=== PATIENT | male | born 1950 | race Caucasian/White ===

== ENCOUNTER 2019-04-02 07:36 | Day surgery (SDC) | payer MEDICARE, MEDICAID ==
[~2019-04-02] VITALS: Ht 175.3 cm; Wt 58.5 kg
[2019-04-02] VITALS (9 sets, daily range): BP systolic 133–191; BP diastolic 79–119
[~2019-04-02 07:36] MED LIST: BACL10TA PO; CYCL10TA10 PO; FLUO20CA39 PO; HYDR-4353 PO; LEVO100T PO; PER10325T PO; SULF-14 PO
--- NOTE | 2019-04-02 07:45 | NUR ---
[facility] Pt oriented to room, including TV & call light use. Vital signs obtained. Pt breathes through stoma in neck and does not have cannula or vocal cord stimulator present.
[2019-04-02 08:35] LABS: BASOPHILS # (AUTO) 0.1 X10'3 (0-0.2); EOSINOPHILS # (AUTO) 0.2 X10'3 (0-0.9); HEMOGLOBIN 10.7 g/dl (14.0-17.9); MEAN CORPUSCULAR HGB CONC 33.5 g/dL (33.0-36.5); MONOCYTES # (AUTO) 1.4 X10'3 (0-0.9)
[2019-04-02] MEDS ORDERED: ceFAZolin 2gm in dextrose, iso 50 ML IV ONE (08:35)
[2019-04-02] MEDS ORDERED: normal saline 1000ml 1,000 ML IV PRN (08:35)
[2019-04-02 08:37] LABS: BASOPHILS % (AUTO) 1.2 % (0-1); LYMPHOCYTES # (AUTO) 1.1 X10'3 (1.1-4.8); LYMPHOCYTES % (AUTO) 10.6 % (21-51); MEAN CORPUSCULAR HEMOGLOBIN 31.6 PG (27.0-31.0); MEAN CORPUSCULAR VOLUME 94.6 FL (78-98); MEAN PLATELET VOLUME 7.1 FL (7.4-10.4); MONOCYTES % (AUTO) 13.9 % (2-12); NEUTROPHILS # (AUTO) 7.2 X10'3 (1.8-7.7); NEUTROPHILS % (AUTO) 72.3 % (42-75); PLATELET COUNT 331 X10'3 (140-440); RED BLOOD COUNT 3.38 X10'6 (4.70-6.10); RED CELL DISTRIBUTION WIDTH 14.6 % (11.5-14.5)
[2019-04-02 08:55] LABS: ALBUMIN 3.5 G/DL (3.4-5.0); ANION GAP 7 (8-16); BLOOD UREA NITROGEN 16 MG/DL (7-18); BUN/CREATININE RATIO 19.8 (5.4-32.0); CALCIUM 8.8 MG/DL (8.5-10.1); CHLORIDE 106 MMOL/L (99-107); CREATININE 0.81 MG/DL (0.60-1.10); GLUCOSE 112 MG/DL (70-104); POTASSIUM 4.3 MMOL/L (3.5-5.1); SODIUM 139 MMOL/L (135-145); TOTAL CARBON DIOXIDE 26.4 MMOL/L (24-32); eGFR > 90 ML/MIN
[2019-04-02] MEDS ORDERED: FLUO40CA10 PO (08:59)
[2019-04-02] MEDS ORDERED: LIDOcaine 1%/PF 5ML 10 MG/ML VIAL SQ ONE (09:00)
[2019-04-02] MEDS ORDERED: midazolam 2 mg/2 ml injection IV PRN (09:00)
[2019-04-02] MEDS ORDERED: fentaNYL/PF 50MCG/1 ML 2ML syringe IV PRN (09:00)
[2019-04-02] MEDS ORDERED: LIDOcaine 1%/PF 5ML 10 MG/ML VIAL ONE (09:14)
[2019-04-02] MEDS ORDERED: diphenhydrAMINE 50 mg/ml inj ONE (09:14)
[2019-04-02] MEDS ORDERED: midazolam 2 mg/2 ml injection ONE ×3 (09:14→10:01)
[2019-04-02] MEDS ORDERED: iohexol 300 MG/1 ML 50ml polymer ONE (09:15)
[2019-04-02] MEDS ORDERED: fentaNYL/PF 50MCG/1 ML 2ML syringe ONE ×3 (09:15→10:02)
--- NOTE | 2019-04-02 09:15 | NUR ---
Pt transported out of room to angio suite via gurney. Pt awake, alert & in no acute distress.
--- NOTE | 2019-04-02 10:40 | NUR ---
Pt returned to room via gurney from angio suite. Pt drowsy but easily arousable. Vital signs obtained, pt denies pain. [place] juice requested and given, 100 mL consumed. Will continue to closely monitor.
[2019-04-02] MEDS ORDERED: normal saline 1000ml 1,000 ML IV SCH (11:08)
[2019-04-02] MEDS ORDERED: HYDROcodone/acetaminophen 5mg/325mg tablet PO PRN (11:10)
[2019-04-02] MEDS ORDERED: morphine 4 MG/ML inj SYRINge IV PRN (11:10)
--- NOTE | 2019-04-02 11:32 | NUR ---
Called and spoke to Maureen pt's caregiver, re time of discharge. Caregiver stated she would arrive at 1330.
--- NOTE | 2019-04-02 14:00 | NUR ---
Pt offered lunch tray, consumed 75% of meal. Pt ambulated independently with wide gait 100ft, tolerated well. IV removed, cannula intact. Discharge instructions, including medication information, S&S worsening condition & f/u appts reviewed with pt and pt's significant other. Pt educated that he must see his PCP for his narcotic prescriptions. All pt belongings, including watch and glasses, gathered up and sent with pt. Pt transported to [facility] in wheelchair. Pt ambulated independently and without difficulty to private vehicle.
== END 2019-04-02 14:00 | disposition home or self-care (01) ==
LOC: SSTAY O 07:36
PROVIDERS: ATTEND Radiology Vascular & Interventional Radiology
PROC: 0QS03ZZ Reposition Lumbar Vertebra, Percutaneous Approach (ICD-10-PCS; principal; 2019-04-02)
PROC: 0QU03JZ Supplement Lumbar Vertebra with Synthetic Substitute, Percutaneous Approach (ICD-10-PCS; 2019-04-02)
PROC: 0Q903ZX Drainage of Lumbar Vertebra, Percutaneous Approach, Diagnostic (ICD-10-PCS; 2019-04-02)
DX: M80.08XA Age-related osteoporosis with current pathological fracture, vertebra(e), initial encounter for fracture (principal); M54.5 Low back pain; W19.XXXA Unspecified fall, initial encounter; Y93.89 Activity, other specified; Y92.89 Other specified places as the place of occurrence of the external cause; Z85.89 Personal history of malignant neoplasm of other organs and systems; Z98.890 Other specified postprocedural states; Z72.89 Other problems related to lifestyle; F17.290 Nicotine dependence, other tobacco product, uncomplicated; Z88.8 Allergy status to other drugs, medicaments and biological substances; Z79.899 Other long term (current) drug therapy; E03.9 Hypothyroidism, unspecified; I10 Essential (primary) hypertension
CPT/HCPCS: 22514; 22515; 80048; 85025; 99152; 99153; J1200; J2250; J3010; Q9967; 88173; 88305; C1713

== ENCOUNTER → 2020-06-26 | Emergency (ER) | payer MEDICARE, MEDICAID ==
[~2020-06-26] VITALS: Ht 175.3 cm; Wt 68.2 kg
[~2020-06-26] MED LIST changes: -BACL10TA PO; +CALC950T2 PO; +CHOL500044 PO; -FLUO20CA39 PO; +FLUO40CA10 PO; +FLUT9.9S NS; -HYDR-4353 PO; +HYDROcodone/acetaminophen 10/325mg tab PO ONE; -LEVO100T PO; +LEVO88TA7 PO; +LIDOcaine 5% patch TP ONE; +OXYC10TA47 PO; -PER10325T PO; -SULF-14 PO; +normal saline 1000ML IV soln IVB ONE; +tamsulosin capsule PO
[2020-06-26 11:54] LABS: ALANINE AMINOTRANSFERASE 61 U/L (12-78); ALBUMIN 3.4 G/DL (3.4-5.0); ALBUMIN/GLOBULIN RATIO 0.8 (1.1-1.5); ALKALINE PHOSPHATASE 113 IU/L (46-116); ANION GAP 19 (8-16); ASPARTATE AMINO TRANSFERASE 153 U/L (10-37); BILIRUBIN,TOTAL 0.7 MG/DL (0.1-1.0); BLOOD UREA NITROGEN 9 MG/DL (7-18); BUN/CREATININE RATIO 6.4 (5.4-32.0); CALCIUM 8.5 MG/DL (8.5-10.1); CHLORIDE 100 MMOL/L (99-107); GLUCOSE 88 MG/DL (70-104); POTASSIUM 3.5 MMOL/L (3.5-5.1); SODIUM 140 MMOL/L (135-145); TOTAL PROTEIN 7.7 G/DL (6.4-8.2); eGFR 50 ML/MIN
[2020-06-26 11:56] LABS: BASOPHILS # (AUTO) 0.1 X10'3 (0-0.2); BASOPHILS % (AUTO) 1.9 % (0-1); EOSINOPHILS # (AUTO) 0.3 X10'3 (0-0.9); EOSINOPHILS % (AUTO) 5.1 % (0-6); HEMATOCRIT 36.8 % (42.0-52.0); HEMOGLOBIN 12.4 g/dl (14.0-17.9); LYMPHOCYTES # (AUTO) 0.9 X10'3 (1.1-4.8); MEAN CORPUSCULAR HEMOGLOBIN 35.1 PG (27.0-31.0); MEAN CORPUSCULAR HGB CONC 33.7 g/dL (33.0-36.5); MEAN CORPUSCULAR VOLUME 103.9 FL (78-98); MEAN PLATELET VOLUME 8.6 FL (7.4-10.4); MONOCYTES # (AUTO) 0.5 X10'3 (0-0.9); MONOCYTES % (AUTO) 8.2 % (2-12); NEUTROPHILS # (AUTO) 4.7 X10'3 (1.8-7.7); NEUTROPHILS % (AUTO) 71.8 % (42-75); PLATELET COUNT 209 X10'3 (140-440); RED BLOOD COUNT 3.54 X10'6 (4.70-6.10); RED CELL DISTRIBUTION WIDTH 17.1 % (11.5-14.5); WHITE BLOOD COUNT 6.6 X10'3 (4.5-11.0)
[2020-06-26 17:02] VITALS: BP 133/93
== END | disposition home or self-care (01) ==
LOC: ER 10:25
DX: C78.89 Secondary malignant neoplasm of other digestive organs (principal); F10.20 Alcohol dependence, uncomplicated; R55 Syncope and collapse; R42 Dizziness and giddiness; I10 Essential (primary) hypertension; E03.9 Hypothyroidism, unspecified; Z85.9 Personal history of malignant neoplasm, unspecified; Z98.890 Other specified postprocedural states; Z72.89 Other problems related to lifestyle; Z88.6 Allergy status to analgesic agent; Z88.8 Allergy status to other drugs, medicaments and biological substances; Z79.899 Other long term (current) drug therapy; Y90.9 Presence of alcohol in blood, level not specified
CPT/HCPCS: 36415; 70450; 72125; 80053; 84484; 85025; 93005; 99285; J7030

== ENCOUNTER 2021-03-20 14:20 | Inpatient (IN) | payer MEDICARE, MEDICAID ==
[~2021-03-20] VITALS: Ht 172.7 cm; Wt 43.3 kg
[~2021-03-20 14:20] MED LIST changes: +CALC1TAB99 PO; -CALC950T2 PO; +CYCL-524 PO; -CYCL10TA10 PO; +FURO20TA4 PO; -HYDROcodone/acetaminophen 10/325mg tab PO ONE; -LEVO88TA7 PO; -LIDOcaine 5% patch TP ONE; +SENN1TAB82 PO; -normal saline 1000ML IV soln IVB ONE; -tamsulosin capsule PO
[2021-03-20] MEDS ORDERED: normal saline 1000ml 1,000 ML IV ONE ×2 (17:05→17:30)
[2021-03-20] MEDS ORDERED: ondansetron/PF 4mg/2ml inj IV ONE (17:05)
[2021-03-20] MEDS ORDERED: morphine 4 MG/ML inj SYRINge IV ONE (17:05)
[2021-03-20 17:06] LABS: BASOPHILS # (AUTO) 0.1 X10'3 (0-0.2); EOSINOPHILS % (AUTO) 0.2 % (0-6); HEMATOCRIT 38.8 % (42.0-52.0); LYMPHOCYTES # (AUTO) 0.6 X10'3 (1.1-4.8); LYMPHOCYTES % (AUTO) 5.7 % (21-51); MEAN CORPUSCULAR HEMOGLOBIN 35.1 PG (27.0-31.0); MEAN CORPUSCULAR HGB CONC 33.5 g/dL (33.0-36.5); MEAN CORPUSCULAR VOLUME 104.8 FL (78-98); MEAN PLATELET VOLUME 7.1 FL (7.4-10.4); MONOCYTES # (AUTO) 0.8 X10'3 (0-0.9); MONOCYTES % (AUTO) 7.3 % (2-12); NEUTROPHILS # (AUTO) 9.3 X10'3 (1.8-7.7); NEUTROPHILS % (AUTO) 85.8 % (42-75); PLATELET COUNT 341 X10'3 (140-440); RED CELL DISTRIBUTION WIDTH 16.1 % (11.5-14.5); WHITE BLOOD COUNT 10.9 X10'3 (4.5-11.0)
[2021-03-20 17:21] LABS: ALANINE AMINOTRANSFERASE 14 U/L (12-78); ALBUMIN 3.3 G/DL (3.4-5.0); ALBUMIN/GLOBULIN RATIO 0.7 (1.1-1.5); ALKALINE PHOSPHATASE 98 IU/L (46-116); ANION GAP 19 (8-16); ASPARTATE AMINO TRANSFERASE 26 U/L (10-37); BILIRUBIN,TOTAL 0.5 MG/DL (0.1-1.0); BLOOD UREA NITROGEN 21 MG/DL (7-18); CALCIUM 9.5 MG/DL (8.5-10.1); CHLORIDE 98 MMOL/L (99-107); GLUCOSE 80 MG/DL (70-104); MAGNESIUM 1.4 MG/DL (1.5-2.4); SODIUM 138 MMOL/L (135-145); TOTAL CARBON DIOXIDE 21.1 MMOL/L (24-32); TOTAL PROTEIN 8.1 G/DL (6.4-8.2); eGFR 74 ML/MIN
[2021-03-20] MEDS ORDERED: ondansetron/PF 4mg/2ml inj IV PRN (17:55)
[2021-03-20] MEDS ORDERED: potassium Cl 20 mEq SR tablet PO PRN ×2 (17:55)
[2021-03-20] MEDS ORDERED: magnesium Cl slow-release 64mg tablet PO PRN (17:55)
--- NOTE | 2021-03-20 19:15 | NUR ---
Patient in room . I have received report from PUNCHER AND FASTENERJACOB BOYD and had the opportunity to ask questions and assume patient care. Addendum: 03/20/21 at 1915 by Samantha Ny RN Amended: Links added.
--- NOTE | 2021-03-20 19:25 | NUR ---
arrived to the room from er slid himself onto bed from [facility] very thin emaciated male non verbal due to trach. set up with sterile water and trach suction set up and marlonker. hospital socks put on noted dry scaly feet and fungal appearing toe nails.
[2021-03-20] MEDS ORDERED: LEVO88TA2 PO (19:30)
[2021-03-20] MEDS: normal saline 1000ml 1,000 ML IV SCH (19:50)
[2021-03-20 19:57] VITALS: BP 139/84
[2021-03-20] MEDS: K and/or MAG REPLACEMENT MC SCH (20:00)
[2021-03-21] VITALS (17 sets, daily range): BP systolic 112–136; BP diastolic 61–76
--- NOTE | 2021-03-21 01:30 | NUR ---
pt awoke c/o left ear neck pain and medicated with morphine for this. pt answered with sign language and paper tablet admission questions.
[2021-03-21] MEDS: morphine 2 MG/ML inj. syringe IV PRN ×3 (01:31→18:42)
[2021-03-21] MEDS: normal saline 1000ml 1,000 ML IV SCH ×3 (04:59→23:55)
[2021-03-21 06:24] LABS: ALBUMIN 2.7 G/DL (3.4-5.0); ANION GAP 11 (8-16); BLOOD UREA NITROGEN 17 MG/DL (7-18); BUN/CREATININE RATIO 22.4 (5.4-32.0); CALCIUM 8.4 MG/DL (8.5-10.1); CHLORIDE 104 MMOL/L (99-107); CREATININE 0.76 MG/DL (0.60-1.10); GLUCOSE 58 MG/DL (70-104); MAGNESIUM 1.3 MG/DL (1.5-2.4); POTASSIUM 3.9 MMOL/L (3.5-5.1); SODIUM 138 MMOL/L (135-145); TOTAL CARBON DIOXIDE 23.5 MMOL/L (24-32); eGFR > 90 ML/MIN
--- NOTE | 2021-03-21 06:30 | NUR ---
Patient in room JUNIOR 358. I have received report from DEB Singh and had the opportunity to ask questions and assume patient care.
[2021-03-21 06:35] LABS: BASOPHILS % (AUTO) 0.5 % (0-1); EOSINOPHILS # (AUTO) 0.1 X10'3 (0-0.9); HEMATOCRIT 36.2 % (42.0-52.0); LYMPHOCYTES # (AUTO) 0.7 X10'3 (1.1-4.8); LYMPHOCYTES % (AUTO) 9.2 % (21-51); MEAN CORPUSCULAR HEMOGLOBIN 35.2 PG (27.0-31.0); MEAN CORPUSCULAR HGB CONC 33.1 g/dL (33.0-36.5); MEAN CORPUSCULAR VOLUME 106.2 FL (78-98); MEAN PLATELET VOLUME 7.6 FL (7.4-10.4); MONOCYTES # (AUTO) 0.9 X10'3 (0-0.9); MONOCYTES % (AUTO) 11.4 % (2-12); NEUTROPHILS # (AUTO) 6.1 X10'3 (1.8-7.7); NEUTROPHILS % (AUTO) 77.9 % (42-75); PLATELET COUNT 296 X10'3 (140-440); RED BLOOD COUNT 3.41 X10'6 (4.70-6.10); WHITE BLOOD COUNT 7.8 X10'3 (4.5-11.0)
--- NOTE | 2021-03-21 06:45 | NUR ---
Problems reprioritized. Patient report given, questions answered & plan of care reviewed with DEB GARCIA. Addendum: 03/21/21 at 0645 by Samantha Ny RN Amended: Links added.
--- NOTE | 2021-03-21 06:45 | NUR ---
OR PT REQUEST BROTHER AMOS CALLED MESSAGE LEFT TO CALL THE HOSPITAL PER HIS BROTHERS REQUEST.
[2021-03-21] MEDS: K and/or MAG REPLACEMENT MC SCH ×2 (08:10→20:00)
[2021-03-21] MEDS: magnesium 4gm in 100ml NS 100 ML IV PRN (08:24)
[2021-03-21] MEDS: magnesium 2GM in 50ml NS 50 ML IV PRN (10:12)
--- NOTE | 2021-03-21 10:49 | NUR ---
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 Pt unsure of exact amount of wt loss though has note been able to eat or drink much at all d/t worsening dysphagia. Current scaled wt shows 43kg and last scaled wt June 2020 shows 68kg which represents a severe 37% body wt loss. Pt appears w/ full body muscle/fat wasting. No edema present. At this time pt meets criteria for malnutrition, MD notified. Pt is scheduled to receive PEG this admit per MD note, will place TF recs below. Pt currently NPO. Will continue to monitor. Recs: 1. IF pt receives PEG: Continuous TF using Jevity 1.2 at 50ml/hr goal providing 1200ml volume, 1440kcals, 67g protein, 968ml free water 2. IF TF, Additional water flush 100ml Q4H; monitor serum Na 3. IF TF, PALB Q / 4. Daily wts 5. Routine Bowel care once TF Addendum: 03/21/21 at [address] Amended: Links added.
[2021-03-21] MEDS ORDERED: MIDAZolam 1 MG/ML 5ML VIAL ONE (11:13)
[2021-03-21] MEDS ORDERED: fentaNYL/PF 50MCG/1 ML 2ML syringe ONE (11:13)
[2021-03-21] MEDS ORDERED: LIDOcaine Viscous 15ml cup ONE (11:13)
--- NOTE | 2021-03-21 18:35 | NUR ---
Patient in room JUNIOR 358. I have received report from DEB GARCIA and had the opportunity to ask questions and assume patient care. Addendum: 03/21/21 at 1919 by Samantha Ny RN Amended: Links added.
[2021-03-22 00:13] VITALS: BP 108/69
[2021-03-22] MEDS: morphine 2 MG/ML inj. syringe IV PRN ×5 (00:35→23:43)
[2021-03-22] MEDS: normal saline 1000ml 1,000 ML IV SCH ×2 (04:51→19:34)
--- NOTE | 2021-03-22 04:55 | NUR ---
PT AWOKE PAIN 7.5/10 MEDICATED WITH 1MG OF MORPHINE FOR THIS.
--- NOTE | 2021-03-22 05:18 | NUR ---
Student documentation: I have reviewed and agree with all interventions, assessments performed and documented by HOPE FRANKLIN RN STUDENT.Student Medication Administration: For this medication-pass time frame, all medication were reviewed, dispensed, administered and documented per hospital policy by HOPE HANDY RN STUDENT. Addendum: 03/22/21 at 0519 by Samantha Ny RN Amended: Links added.
--- NOTE | 2021-03-22 05:25 | NUR ---
Student documentation: I have reviewed and agree with all interventions, assessments performed and documented by HOPE FRANKLIN RN STUDENT. Addendum: 03/22/21 at 0526 by Samantha Ny RN Amended: Links added.
--- NOTE | 2021-03-22 05:26 | NUR ---
Student Medication Administration: For this medication-pass time frame, all medication were reviewed, dispensed, administered and documented per hospital policy by HOPE FRANKLIN RN STUDENT. Addendum: 03/22/21 at 0526 by Samantha Ny RN Amended: Links added.
[2021-03-22 06:13] LABS: BASOPHILS % (AUTO) 0.5 % (0-1); EOSINOPHILS % (AUTO) 0.3 % (0-6); HEMATOCRIT 37.4 % (42.0-52.0); HEMOGLOBIN 12.5 g/dl (14.0-17.9); LYMPHOCYTES # (AUTO) 0.4 X10'3 (1.1-4.8); LYMPHOCYTES % (AUTO) 5.4 % (21-51); MEAN CORPUSCULAR HEMOGLOBIN 35.2 PG (27.0-31.0); MEAN CORPUSCULAR HGB CONC 33.4 g/dL (33.0-36.5); MEAN CORPUSCULAR VOLUME 105.3 FL (78-98); MEAN PLATELET VOLUME 7.1 FL (7.4-10.4); MONOCYTES # (AUTO) 0.7 X10'3 (0-0.9); NEUTROPHILS # (AUTO) 6.5 X10'3 (1.8-7.7); NEUTROPHILS % (AUTO) 84.8 % (42-75); PLATELET COUNT 307 X10'3 (140-440); RED BLOOD COUNT 3.55 X10'6 (4.70-6.10); RED CELL DISTRIBUTION WIDTH 16.3 % (11.5-14.5); WHITE BLOOD COUNT 7.6 X10'3 (4.5-11.0)
[2021-03-22 06:23] LABS: ALBUMIN 2.5 G/DL (3.4-5.0); ANION GAP 11 (8-16); BLOOD UREA NITROGEN 11 MG/DL (7-18); BUN/CREATININE RATIO 16.2 (5.4-32.0); CALCIUM 8.1 MG/DL (8.5-10.1); CHLORIDE 104 MMOL/L (99-107); CREATININE 0.68 MG/DL (0.60-1.10); GLUCOSE 63 MG/DL (70-104); MAGNESIUM 1.6 MG/DL (1.5-2.4); SODIUM 138 MMOL/L (135-145); TOTAL CARBON DIOXIDE 22.7 MMOL/L (24-32); eGFR > 90 ML/MIN
--- NOTE | 2021-03-22 06:46 | NUR ---
Problems reprioritized. Patient report given, questions answered & plan of care reviewed with CHING BOYD. Addendum: 03/22/21 at 0647 by Samantha Ny RN Amended: Links added.
--- NOTE | 2021-03-22 06:59 | NUR ---
Patient in room J[facility] 358. I have received report from charlene obrien and had the opportunity to ask questions and assume patient care.
[2021-03-22 07:00] VITALS: BP 129/73
[2021-03-22] MEDS: K and/or MAG REPLACEMENT MC SCH ×2 (08:00→20:00)
[2021-03-22] MEDS: morphine 10mg/0.5ml (conc. morphine) oral syringe PO SCH ×2 (12:15→20:27)
[2021-03-22 12:30] VITALS: BP 116/74
--- NOTE | 2021-03-22 14:57 | NUR ---
per pharmacist, ok to crush Synthroid and Prozac
[2021-03-22] MEDS: levoTHYROXINE 88mcg tablet PO SCH (15:02)
[2021-03-22] MEDS: FLUoxetine 20mg capsule PO SCH (15:02)
--- NOTE | 2021-03-22 18:20 | NUR ---
Patient in room JUN[facility] 358. I have received report from CHING BOYD and had the opportunity to ask questions and assume patient care. Addendum: 03/22/21 at 1916 by Samantha Ny RN Amended: Links added.
--- NOTE | 2021-03-22 18:36 | NUR ---
Problems reprioritized. Patient report given, questions answered & plan of care reviewed with JOSE BOYD.
[2021-03-22 19:00] VITALS: BP 106/63
[2021-03-23] VITALS (18 sets, daily range): BP systolic 93–148; BP diastolic 57–89
--- NOTE | 2021-03-23 01:00 | NUR ---
pt sitting up watching tv given warm blankets per request and then new iv 20 inserted left upper arm. pt stated he wanted to keep the left ac iv for now but moved saline to new iv for pt.
--- NOTE | 2021-03-23 02:00 | NUR ---
pt awake and seyt up for trach suctioning and noted he tolerated it well and brought up a mucous plug x2 with slight pink tint to the secretions.
--- NOTE | 2021-03-23 03:39 | NUR ---
resting on his side without changes.
[2021-03-23] MEDS: normal saline 1000ml 1,000 ML IV SCH ×2 (03:55→17:37)
[2021-03-23] MEDS: morphine 2 MG/ML inj. syringe IV PRN ×2 (04:48→17:37)
--- NOTE | 2021-03-23 04:50 | NUR ---
medicated with morphine for pain.
[2021-03-23 06:11] LABS: BASOPHILS # (AUTO) 0.1 X10'3 (0-0.2); BASOPHILS % (AUTO) 1.3 % (0-1); EOSINOPHILS # (AUTO) 0.1 X10'3 (0-0.9); EOSINOPHILS % (AUTO) 1.2 % (0-6); HEMOGLOBIN 10.9 g/dl (14.0-17.9); LYMPHOCYTES # (AUTO) 0.4 X10'3 (1.1-4.8); LYMPHOCYTES % (AUTO) 5.3 % (21-51); MEAN CORPUSCULAR HEMOGLOBIN 34.6 PG (27.0-31.0); MEAN CORPUSCULAR HGB CONC 33.1 g/dL (33.0-36.5); MEAN CORPUSCULAR VOLUME 104.4 FL (78-98); MEAN PLATELET VOLUME 6.9 FL (7.4-10.4); MONOCYTES % (AUTO) 12.3 % (2-12); NEUTROPHILS # (AUTO) 6.5 X10'3 (1.8-7.7); NEUTROPHILS % (AUTO) 79.9 % (42-75); PLATELET COUNT 243 X10'3 (140-440); RED BLOOD COUNT 3.16 X10'6 (4.70-6.10); RED CELL DISTRIBUTION WIDTH 16.2 % (11.5-14.5); WHITE BLOOD COUNT 8.1 X10'3 (4.5-11.0)
[2021-03-23 06:20] LABS: APTT 33 SECONDS (22-32)
[2021-03-23 06:31] LABS: ALBUMIN 2.2 G/DL (3.4-5.0); ANION GAP 7 (8-16); BLOOD UREA NITROGEN 9 MG/DL (7-18); BUN/CREATININE RATIO 12.3 (5.4-32.0); CALCIUM 7.4 MG/DL (8.5-10.1); CHLORIDE 104 MMOL/L (99-107); CREATININE 0.73 MG/DL (0.60-1.10); GLUCOSE 85 MG/DL (70-104); MAGNESIUM 1.1 MG/DL (1.5-2.4); POTASSIUM 3.2 MMOL/L (3.5-5.1); SODIUM 137 MMOL/L (135-145); TOTAL CARBON DIOXIDE 26.4 MMOL/L (24-32); eGFR > 90 ML/MIN
--- NOTE | 2021-03-23 07:02 | NUR ---
Patient in room J[facility] 358. I have received report from charlene obrien and had the opportunity to ask questions and assume patient care.
[2021-03-23] MEDS: K and/or MAG REPLACEMENT MC SCH ×2 (07:21→20:00)
[2021-03-23] MEDS: FLUoxetine 20mg capsule PO SCH (07:31)
[2021-03-23] MEDS: magnesium 2GM in 50ml NS 50 ML IV PRN (07:31)
[2021-03-23] MEDS: morphine 10mg/0.5ml (conc. morphine) oral syringe PO SCH ×2 (07:31→20:00)
[2021-03-23] MEDS: levoTHYROXINE 88mcg tablet PO SCH (07:31)
[2021-03-23] MEDS: potassium CL 10mEq/100ml bag 100 ML IV PRN ×4 (07:32→11:38)
[2021-03-23] MEDS: magnesium 4gm in 100ml NS 100 ML IV PRN (09:06)
--- NOTE | 2021-03-23 11:29 | NUR ---
Reassessment: Pt continues to be NPO, is currently scheduled to get PEG this afternoon per RN. Noted pt K and Mg low and pt possibly at risk for refeeding syndrome, d/w RN who states they are being replaced. Pt also has tracheostomy. LBM 03/20. Will continue to monitor for nutrition support needs. Recs: 1. IF pt receives PEG: Continuous TF using Jevity 1.2 at 50ml/hr goal providing 1200ml volume, 1440kcals, 67g protein, 968ml free water 2. IF TF, Additional water flush 100ml Q4H; monitor serum Na 3. IF TF, PALB Q / 4. Daily wts 5. Routine Bowel care once TF Addendum: 03/23/21 at [address] Amended: Links added.
[2021-03-23] MEDS ORDERED: morphine 2 MG/ML inj. syringe IV PRN (15:00)
[2021-03-23] MEDS ORDERED: morphine 4 MG/ML inj SYRINge IV PRN (15:00)
[2021-03-23] MEDS ORDERED: ringers solution, lacted 1,000 ML IV SCH (15:00)
[2021-03-23] MEDS ORDERED: fentaNYL/PF 50MCG/1 ML 2ML syringe IV PRN ×2 (15:00)
[2021-03-23] MEDS ORDERED: ondansetron/PF 4mg/2ml inj IV PRN (15:00)
[2021-03-23] MEDS ORDERED: hydrALAZINE 20mg/ml inj. IV PRN (15:00)
[2021-03-23] MEDS ORDERED: labetalol 20mg/4ml (5mg/ml) syringe IV PRN (15:00)
[2021-03-23] MEDS ORDERED: BUPIVAcaine 0.5% inj/PF 30 ML ONE (17:03)
[2021-03-23] MEDS ORDERED: LIDOcaine 1% 30ml preserv. free vial ONE (17:03)
--- NOTE | 2021-03-23 18:12 | NUR ---
Problems reprioritized. Patient report given, questions answered & plan of care reviewed with SANJAY BOYD.
[2021-03-23] MEDS ORDERED: rocuronium 10mg/ml inj IV ONE ×2 (19:09→20:02)
[2021-03-23] MEDS ORDERED: LIDOcaine 2% (20mg/ml) 5ml vial ONE (19:09)
[2021-03-23] MEDS ORDERED: propofol inj 20 ML IV ONE (19:09)
[2021-03-23] MEDS ORDERED: ondansetron/PF 4mg/2ml inj ONE (19:10)
[2021-03-23] MEDS ORDERED: glycopyrrolate 0.2mg/ml inj ONE (19:44)
[2021-03-23] MEDS ORDERED: sevoflurane 250ml liquid IH ONE (19:44)
[2021-03-23] MEDS ORDERED: dexamethasone sod phosphate 10mg/ml inj ONE (19:44)
[2021-03-23] MEDS ORDERED: neostigmine methylsulfate 1 MG/ML 10ml vial ONE (19:44)
[2021-03-23] MEDS ORDERED: cefazolin/dext.iso 2,000MG/50 ML BAG IV ONE (19:44)
[2021-03-23] MEDS ORDERED: fentaNYL/PF 50MCG/1 ML 2ML syringe ONE (19:57)
--- NOTE | 2021-03-23 21:00 | NUR ---
PT ARRIVED TO RECOVERY VIA BED, ACCOMPAINIED BY DR RAMOS-REPORT GIVEN, VSS, PT WAKING UP, PIV 20G TO LEFT A/C SCDS ON, NOTED TO HAVE NEW GTUBE AND 3 BANDAIDS-CDI
--- NOTE | 2021-03-23 22:00 | NUR ---
PT AWAKE NOW ABLE TO WRITE TO COMMUNICATE NEEDS-C/O NAUSEA AND PAIN - MEDICATED FOR BOTH. VSS
--- NOTE | 2021-03-23 22:23 | NUR ---
Pt report received from Jelly BOYD PACU.Pt ; VSS , NAD.
--- NOTE | 2021-03-23 22:40 | NUR ---
Patient back to room' a little sedated,G tube in place .Dressing CDI, VSS.Will continue to monitor.
--- NOTE | 2021-03-23 22:40 | NUR ---
PT TAKEN TO ROOM 358B, VSS, PAIN AND NAUSEA BETTER, NO CHNAGES IN ASSESSMENT, REPORT GIVEN TO PRIMARY RN WHO WAS IN ROOM TO RECEIVE PT.
[2021-03-24] VITALS (7 sets, daily range): BP systolic 99–138; BP diastolic 59–80
[2021-03-24] MEDS: morphine 2 MG/ML inj. syringe IV PRN ×4 (01:29→23:11)
[2021-03-24] MEDS: normal saline 1000ml 1,000 ML IV SCH ×3 (01:55→21:55)
--- NOTE | 2021-03-24 06:07 | NUR ---
Patient in room [facility]UN[facility] 358. I have received report from DEB De Leon and had the opportunity to ask questions and assume patient care.
--- NOTE | 2021-03-24 06:27 | NUR ---
Problems re-prioritized,report given,questions answered and plan of care reviewed with Shawna BOYD
[2021-03-24 07:15] LABS: BASOPHILS # (AUTO) 0.2 X10'3 (0-0.2); EOSINOPHILS % (AUTO) 0 % (0-6); HEMATOCRIT 36.1 % (42.0-52.0); HEMOGLOBIN 11.9 g/dl (14.0-17.9); LYMPHOCYTES # (AUTO) 0.3 X10'3 (1.1-4.8); MEAN CORPUSCULAR HEMOGLOBIN 34.7 PG (27.0-31.0); MEAN PLATELET VOLUME 7.5 FL (7.4-10.4); MONOCYTES # (AUTO) 0.2 X10'3 (0-0.9); MONOCYTES % (AUTO) 2.3 % (2-12); NEUTROPHILS % (AUTO) 92.7 % (42-75); PLATELET COUNT 254 X10'3 (140-440); RED BLOOD COUNT 3.43 X10'6 (4.70-6.10); RED CELL DISTRIBUTION WIDTH 16.2 % (11.5-14.5); WHITE BLOOD COUNT 8.6 X10'3 (4.5-11.0)
[2021-03-24] MEDS: levoTHYROXINE 88mcg tablet PO SCH (07:28)
[2021-03-24] MEDS: FLUoxetine 20mg capsule PO SCH (07:29)
[2021-03-24] MEDS: morphine 10mg/0.5ml (conc. morphine) oral syringe PO SCH ×2 (07:30→19:18)
[2021-03-24 07:50] LABS: ALBUMIN 2.3 G/DL (3.4-5.0); ANION GAP 12 (8-16); BLOOD UREA NITROGEN 5 MG/DL (7-18); BUN/CREATININE RATIO 7.8 (5.4-32.0); CALCIUM 7.9 MG/DL (8.5-10.1); CHLORIDE 101 MMOL/L (99-107); CREATININE 0.64 MG/DL (0.60-1.10); GLUCOSE 132 MG/DL (70-104); MAGNESIUM 1.6 MG/DL (1.5-2.4); POTASSIUM 3.9 MMOL/L (3.5-5.1); SODIUM 136 MMOL/L (135-145); TOTAL CARBON DIOXIDE 23.3 MMOL/L (24-32); eGFR > 90 ML/MIN
[2021-03-24] MEDS: K and/or MAG REPLACEMENT MC SCH ×2 (08:00→20:00)
--- NOTE | 2021-03-24 10:23 | NUR ---
TF consult: Pt s/p G-tube placement 03/23, see TF recommendations below. Also received a consult for home bolus TF recs, see below. Noted pt having episodes of hypoglycemia though pt not receiving dextrose per EMR. Hopeful that BG levels will become more stable once pt receiving TF. Will continue to follow closely. Recommendations: 1. Continuous TF using Jevity 1.2 with 70 mL/hr goal to provide 1680 mL total volume/day, 2016 kcal, 93 g protein, and 1326 mL water 2. No water flushes at this time given serum Na 136 MMOL/L; monitor serum Na 3. Prealbumin q Monday/ 4. Daily scaled wts 5. Routine bowel jail BOLUS TF RECS: 1) Bolus TF QID using Jevity 1.5 or equivalent with 350 mL goal. Begin with 150 mL bolus and advance by 50 mL each bolus feed as tolerated to goal 2) Additional 100 mL water flush before and after each bolus feed 3) Outpatient RD to titrate to goal rate and adjust recommendations as appropriate based on patient's estimated nutrient needs Addendum: 03/24/21 at [address] Amended: Links added.
--- NOTE | 2021-03-24 15:25 | NUR ---
Contacted Lalo the director fixed income regarding no free water ordered. Per Lalo due to patients NA 136 none at this time continue to monitor NA levels.
--- NOTE | 2021-03-24 18:15 | NUR ---
Spoke to Dr Ramirez regarding is patient able to have ice chips. Per Dr Ramirez refer question to hospitalist re: swallowing due to he does not know patients swallowing ability. Primary RN Shawna aware.
--- NOTE | 2021-03-24 18:25 | NUR ---
Problems reprioritized. Patient report given, questions answered & plan of care reviewed with Haley BOYD Traveler.
--- NOTE | 2021-03-24 18:32 | NUR ---
PAGER ID: [phone] MESSAGE: Candido Schawrtz#[id number] - Pt would like to have ice chips. Dr goodrich asked we text you to request a swallow test. Can we order a swallow test please. Thank you. Shawna Morris [phone]
--- NOTE | 2021-03-24 18:41 | NUR ---
Per Dr. Tilley, patient can have ice chips
[2021-03-25 01:30] VITALS: BP 144/79
--- NOTE | 2021-03-25 06:10 | NUR ---
Patient in room [facility] 358. I have received report from DEB Matos and had the opportunity to ask questions and assume patient care.
--- NOTE | 2021-03-25 06:32 | NUR ---
Problems re-prioritized,report given and plan of care reviewed with Shawna BOYD
[2021-03-25 07:00] VITALS: BP 97/61
[2021-03-25 07:00] LABS: BASOPHILS % (AUTO) 0.3 % (0-1); EOSINOPHILS % (AUTO) 0.2 % (0-6); HEMATOCRIT 30.9 % (42.0-52.0); HEMOGLOBIN 10.3 g/dl (14.0-17.9); LYMPHOCYTES # (AUTO) 0.4 X10'3 (1.1-4.8); LYMPHOCYTES % (AUTO) 4.6 % (21-51); MEAN CORPUSCULAR HEMOGLOBIN 34.8 PG (27.0-31.0); MEAN CORPUSCULAR HGB CONC 33.4 g/dL (33.0-36.5); MEAN CORPUSCULAR VOLUME 104.1 FL (78-98); MEAN PLATELET VOLUME 7.4 FL (7.4-10.4); MONOCYTES # (AUTO) 0.6 X10'3 (0-0.9); MONOCYTES % (AUTO) 7.1 % (2-12); NEUTROPHILS # (AUTO) 7.6 X10'3 (1.8-7.7); NEUTROPHILS % (AUTO) 87.8 % (42-75); PLATELET COUNT 237 X10'3 (140-440); RED BLOOD COUNT 2.97 X10'6 (4.70-6.10); WHITE BLOOD COUNT 8.7 X10'3 (4.5-11.0)
--- NOTE | 2021-03-25 07:00 | NUR ---
Patient in room JUN[facility] 358. I have received report from Haley BOYD traveler and had the opportunity to ask questions and assume patient care.
[2021-03-25 07:14] LABS: ALBUMIN 1.9 G/DL (3.4-5.0); ANION GAP 3 (8-16); BLOOD UREA NITROGEN 7 MG/DL (7-18); BUN/CREATININE RATIO 10.3 (5.4-32.0); CALCIUM 7.8 MG/DL (8.5-10.1); CHLORIDE 106 MMOL/L (99-107); CREATININE 0.68 MG/DL (0.60-1.10); GLUCOSE 132 MG/DL (70-104); POTASSIUM 3.5 MMOL/L (3.5-5.1); PREALBUMIN 6.4 MG/DL (19-36); SODIUM 136 MMOL/L (135-145); TOTAL CARBON DIOXIDE 26.7 MMOL/L (24-32); eGFR > 90 ML/MIN
[2021-03-25] MEDS: levoTHYROXINE 88mcg tablet PO SCH (07:33)
[2021-03-25] MEDS: FLUoxetine 20mg capsule PO SCH (07:33)
[2021-03-25] MEDS: morphine 10mg/0.5ml (conc. morphine) oral syringe PO SCH ×2 (07:35→19:52)
[2021-03-25] MEDS: normal saline 1000ml 1,000 ML IV SCH ×2 (07:53→19:52)
[2021-03-25] MEDS: K and/or MAG REPLACEMENT MC SCH ×2 (08:00→20:00)
[2021-03-25] MEDS: morphine 2 MG/ML inj. syringe IV PRN ×2 (09:52→22:43)
[2021-03-25 11:30] VITALS: BP 97/60
--- NOTE | 2021-03-25 11:56 | NUR ---
Problems reprioritized. Patient report given, questions answered & plan of care reviewed with SC ADN Student.
--- NOTE | 2021-03-25 12:00 | NUR ---
PATIENT REPORT RECEIVED FROM PA STUDENT NURSEDENISHA
[2021-03-25 18:09] VITALS: BP 98/61
--- NOTE | 2021-03-25 18:17 | NUR ---
Problems reprioritized. Patient report given, questions answered & plan of care reviewed with Haley BOYD Traveler.
--- NOTE | 2021-03-25 18:28 | NUR ---
Patient in room JUNIOR 358 B. I have received report from Shawna BOYD and had the opportunity to ask questions and assume patient care.
[2021-03-26] VITALS: BP 96/61
[2021-03-26] MEDS: normal saline 1000ml 1,000 ML IV SCH ×2 (03:55→06:20)
--- NOTE | 2021-03-26 06:39 | NUR ---
Problems re-prioritized. Patient report given, questions answered & plan of care reviewed with Shawna BOYD.
[2021-03-26] MEDS: K and/or MAG REPLACEMENT MC SCH (08:00)
[2021-03-26] MEDS: FLUoxetine 20mg capsule PO SCH (08:39)
[2021-03-26] MEDS: levoTHYROXINE 88mcg tablet PO SCH (08:39)
[2021-03-26] MEDS: morphine 10mg/0.5ml (conc. morphine) oral syringe PO SCH (08:40)
[2021-03-26 11:00] VITALS: BP 115/71
--- NOTE | 2021-03-26 15:18 | NUR ---
Pt Dc to home with care analyst Monica. Pt was educated by Paul on how to do bolus feeding. Pt able to teach back and demonstrate ability to feed himself. Pt verbalizes understanding of ALL Dc orders and the importance of following up with Dr goodrich in 2 weeks. Pt's care analyst refused to come in and get trained, she stated she will not be caring for him because she is ill. Pt still wants to go home. A taxi was called and he went home.
== END 2021-03-26 15:18 | disposition home health service (06) | DRG 391 ==
LOC: ER 14:21 → SUR 3N 17:55 → EDBEDREQ 19:28 → SUR 3N 03-21 01:00 → UNDOADMIN 03-21 01:00 → ER 03-21 01:00
PROVIDERS: ADMIT Internal Medicine; ATTEND Internal Medicine
PROC: 0DJ08ZZ Inspection of Upper Intestinal Tract, Via Natural or Artificial Opening Endoscopic (ICD-10-PCS; 2021-03-21)
PROC: 8E0W4CZ Robotic Assisted Procedure of Trunk Region, Percutaneous Endoscopic Approach (ICD-10-PCS; 2021-03-23)
PROC: 0DH64UZ Insertion of Feeding Device into Stomach, Percutaneous Endoscopic Approach (ICD-10-PCS; principal; 2021-03-23 19:44)
DX: K22.2 Esophageal obstruction (principal); E43 Unspecified severe protein-calorie malnutrition; Z68.1 Body mass index [BMI] 19.9 or less, adult; Z20.822 Contact with and (suspected) exposure to COVID-19; E03.9 Hypothyroidism, unspecified; R62.7 Adult failure to thrive; R13.10 Dysphagia, unspecified; M54.9 Dorsalgia, unspecified; G89.29 Other chronic pain; Z85.21 Personal history of malignant neoplasm of larynx; Z85.46 Personal history of malignant neoplasm of prostate; E87.6 Hypokalemia; Z93.0 Tracheostomy status
CPT/HCPCS: 36415; 43235; 71045; 80048; 80053; 82948; 83735; 84134; 84443; 85025; 85610; 85730; 86885; 86900; 86901; 87081; 87635; 93005; 97161; 97530; 99152; 99285; A4215; A4618; A4620; A6402; A7000; B4087; G0378; J0690; J1100; J2250; J2270; J2405; J2704; J2710; J3010; J3475; J3480; J3490; J7030; J7040; J7120; S0020

== ENCOUNTER 2021-04-03 14:02 | Inpatient (IN) | payer MEDICARE, MEDICAID ==
[~2021-04-03] VITALS: Ht 175.3 cm; Wt 52.7 kg
[~2021-04-03 14:02] MED LIST changes: -CALC1TAB99 PO; -CHOL500044 PO; -FLUT9.9S NS; -FURO20TA4 PO; +LEVO88TA2 PO; -SENN1TAB82 PO
[2021-04-03 15:14] LABS: BASOPHILS % (AUTO) 0.4 % (0-1); EOSINOPHILS # (AUTO) 0.1 X10'3 (0-0.9); EOSINOPHILS % (AUTO) 1.3 % (0-6); HEMATOCRIT 34.9 % (42.0-52.0); HEMOGLOBIN 11.7 g/dl (14.0-17.9); LYMPHOCYTES # (AUTO) 0.5 X10'3 (1.1-4.8); LYMPHOCYTES % (AUTO) 5.5 % (21-51); MEAN CORPUSCULAR HEMOGLOBIN 34.9 PG (27.0-31.0); MEAN CORPUSCULAR HGB CONC 33.6 g/dL (33.0-36.5); MEAN PLATELET VOLUME 7.2 FL (7.4-10.4); MONOCYTES # (AUTO) 0.9 X10'3 (0-0.9); MONOCYTES % (AUTO) 9.3 % (2-12); NEUTROPHILS # (AUTO) 7.8 X10'3 (1.8-7.7); NEUTROPHILS % (AUTO) 83.5 % (42-75); PLATELET COUNT 372 X10'3 (140-440); RED BLOOD COUNT 3.35 X10'6 (4.70-6.10); RED CELL DISTRIBUTION WIDTH 15.4 % (11.5-14.5); WHITE BLOOD COUNT 9.3 X10'3 (4.5-11.0)
[2021-04-03] MEDS ORDERED: ondansetron/PF 4mg/2ml inj IV ONE (15:35)
[2021-04-03 15:38] LABS: ALANINE AMINOTRANSFERASE 15 U/L (12-78); ALBUMIN 2.8 G/DL (3.4-5.0); ALBUMIN/GLOBULIN RATIO 0.7 (1.1-1.5); ALKALINE PHOSPHATASE 67 IU/L (46-116); ANION GAP 8 (8-16); ASPARTATE AMINO TRANSFERASE 25 U/L (10-37); BILIRUBIN,TOTAL 0.5 MG/DL (0.1-1.0); BLOOD UREA NITROGEN 12 MG/DL (7-18); BUN/CREATININE RATIO 15.8 (5.4-32.0); CALCIUM 8.9 MG/DL (8.5-10.1); CHLORIDE 101 MMOL/L (99-107); CREATININE 0.76 MG/DL (0.60-1.10); GLUCOSE 91 MG/DL (70-104); SODIUM 138 MMOL/L (135-145); TOTAL CARBON DIOXIDE 29.2 MMOL/L (24-32); eGFR > 90 ML/MIN
[2021-04-03 15:40] LABS: POTASSIUM 4.3 MMOL/L (3.5-5.1)
[2021-04-03] MEDS ORDERED: iohexol 300mg/ml 100ml inj. ONE (15:53)
[2021-04-03] MEDS: morphine 2 MG/ML inj. syringe IV PRN ×3 (16:39→19:08)
[2021-04-03] MEDS ORDERED: piperacillin/tazo 3.375gm/50ml 50 ML IV ONE (17:10)
[2021-04-03] MEDS ORDERED: diatrozoate meglu/diatrozoate sod (37% iodine) 120ML oral solution PO ONE (17:35)
[2021-04-03] MEDS ORDERED: diatr meglu/diatrizoate 30ml oral sol.-(3 dose) bottle PO ONE ×2 (17:45)
[2021-04-03 19:26] LABS: CLARITY,URINE CLEAR (Clear); COLOR,URINE YELLOW (Yellow); GLUCOSE, URINE NEGATIVE (Neg); KETONES,URINE NEGATIVE (Neg); LEUKOCYTE ESTERASE ,URINE NEGATIVE (Neg); NITRITES, URINE NEGATIVE (Neg); OCCULT BLOOD,URINE NEGATIVE (Neg); PROTEIN,URINE NEGATIVE (Neg); UROBILINOGEN,URINE 0.2 E.U/dL (0.2-1.0)
[2021-04-03 19:38] LABS: UA COLLECTION TYPE URINAL
[2021-04-03] MEDS ORDERED: ATRNS BOTHNARES (20:41)
[2021-04-03] MEDS ORDERED: morphine 2 MG/ML inj. syringe IV PRN ×2 (22:00)
[2021-04-03] MEDS ORDERED: ondansetron/PF 4mg/2ml inj IV PRN (22:00)
[2021-04-03] MEDS ORDERED: mag hydrox/Alum hydrox/simeth 30ml oral suspension PO PRN (22:00)
[2021-04-03] MEDS ORDERED: magnesium hydroxide 30ml (MOM) UD suspension PO PRN (22:00)
[2021-04-03] MEDS ORDERED: acetaminophen 325mg tablet PO PRN (22:00)
--- NOTE | 2021-04-03 22:51 | NUR ---
Per Dr. Dean. Do not use G-tube until cleared by Surgeon
[2021-04-04] VITALS: BP_SYST 139; BP_SYST 145; BP_DIAS 67; BP_DIAS 83
[2021-04-04] MEDS: piperacillin/tazo 3.375gm/50ml 50 ML IV SCH ×2 (01:31→07:26)
[2021-04-04] MEDS: normal saline 1000ml 1,000 ML IV SCH ×2 (01:32→08:00)
[2021-04-04] MEDS: morphine 2 MG/ML inj. syringe IV PRN (02:00)
[2021-04-04 06:04] LABS: BASOPHILS # (AUTO) 0.1 X10'3 (0-0.2); EOSINOPHILS # (AUTO) 0.2 X10'3 (0-0.9); EOSINOPHILS % (AUTO) 2.3 % (0-6); HEMATOCRIT 32.6 % (42.0-52.0); HEMOGLOBIN 10.9 g/dl (14.0-17.9); LYMPHOCYTES # (AUTO) 0.6 X10'3 (1.1-4.8); LYMPHOCYTES % (AUTO) 7.4 % (21-51); MEAN CORPUSCULAR HGB CONC 33.5 g/dL (33.0-36.5); MEAN CORPUSCULAR VOLUME 104.3 FL (78-98); MEAN PLATELET VOLUME 7.1 FL (7.4-10.4); MONOCYTES # (AUTO) 0.8 X10'3 (0-0.9); MONOCYTES % (AUTO) 10.5 % (2-12); NEUTROPHILS % (AUTO) 78.8 % (42-75); PLATELET COUNT 341 X10'3 (140-440); RED BLOOD COUNT 3.12 X10'6 (4.70-6.10); RED CELL DISTRIBUTION WIDTH 15.5 % (11.5-14.5); WHITE BLOOD COUNT 7.6 X10'3 (4.5-11.0)
[2021-04-04 06:31] LABS: ALANINE AMINOTRANSFERASE 13 U/L (12-78); ALBUMIN 2.3 G/DL (3.4-5.0); ALBUMIN/GLOBULIN RATIO 0.7 (1.1-1.5); ALKALINE PHOSPHATASE 57 IU/L (46-116); ANION GAP 8 (8-16); ASPARTATE AMINO TRANSFERASE 18 U/L (10-37); BILIRUBIN,TOTAL 0.4 MG/DL (0.1-1.0); BLOOD UREA NITROGEN 11 MG/DL (7-18); BUN/CREATININE RATIO 14.9 (5.4-32.0); CALCIUM 8.2 MG/DL (8.5-10.1); CHLORIDE 102 MMOL/L (99-107); CREATININE 0.74 MG/DL (0.60-1.10); GLUCOSE 70 MG/DL (70-104); SODIUM 140 MMOL/L (135-145); TOTAL CARBON DIOXIDE 29.8 MMOL/L (24-32); TOTAL PROTEIN 5.7 G/DL (6.4-8.2); eGFR > 90 ML/MIN
--- NOTE | 2021-04-04 06:41 | NUR ---
Patient alert and oriented, non verbal
[2021-04-04 07:00] VITALS: BP 142/82
[2021-04-04] MEDS ORDERED: docusate sod 100mg capsule PO SCH (08:00)
[2021-04-04] MEDS ORDERED: ipratropium 0.06% nasal spray 15ml NS SCH (08:00)
--- NOTE | 2021-04-04 10:11 | NUR ---
Noted pt admitted w/ leaking G-tube which was placed last admit 03/23. Pt currently NPO though no TF consult at this time. Will place recs below for when pt to start TF Recommendations: 1. Continuous TF using Jevity 1.2 with 70 mL/hr goal to provide 1680 mL total volume/day, 2016 kcal, 93 g protein, and 1326 mL water 2. Additional water flush 100ml Q4H; monitor serum Na 3. Prealbumin q Monday/ 4. Daily scaled wts 5. Routine bowel halfway BOLUS TF RECS: 1) Bolus TF QID using Jevity 1.5 or equivalent with 350 mL goal. Begin with 150 mL bolus and advance by 50 mL each bolus feed as tolerated to goal 2) Additional 100 mL water flush before and after each bolus feed 3) Outpatient RD to titrate to goal rate and adjust recommendations as appropriate based on patient's estimated nutrient needs Addendum: 04/04/21 at [address] Amended: Links added.
[2021-04-04] MEDS ORDERED: potassium CL 10mEq/100ml bag 100 ML IV PRN (10:50)
[2021-04-04] MEDS ORDERED: magnesium 4gm in 100ml NS 100 ML IV PRN (10:50)
[2021-04-04] MEDS ORDERED: magnesium Cl slow-release 64mg tablet PO PRN (10:50)
[2021-04-04] MEDS ORDERED: potassium Cl 20 mEq SR tablet PO PRN ×2 (10:50)
[2021-04-04 11:00] VITALS: BP 144/104
--- NOTE | 2021-04-04 15:56 | NUR ---
Message: Re: Candido Sahu Room [address] Abbott cleared patient for discharge, would like hospitalist to do discharge. "Stated G tube is fine" Thank You, Benny BOYD Custom Responses: promotional table spacer Transaction number: [id number]
--- NOTE | 2021-04-04 17:04 | NUR ---
patient discharged, PIV removed all discharge orders explained. PCT wheeled pt down to lobby for ride
[2021-04-04] MEDS ORDERED: K and/or MAG REPLACEMENT MC SCH (20:00)
== END 2021-04-04 17:05 | disposition home health service (06) | DRG 393 ==
LOC: ER 14:03 → ED HOLD 22:01 → SUR 3N 23:49
PROVIDERS: ADMIT Internal Medicine; ATTEND Family Medicine
PROC: 0DW6XUZ Revision of Feeding Device in Stomach, External Approach (ICD-10-PCS; principal; 2021-04-03)
PROC: BW211ZZ Computerized Tomography (CT Scan) of Abdomen and Pelvis using Low Osmolar Contrast (ICD-10-PCS; 2021-04-03)
DX: K94.23 Gastrostomy malfunction (principal); K65.9 Peritonitis, unspecified; E43 Unspecified severe protein-calorie malnutrition; K31.1 Adult hypertrophic pyloric stenosis; Z68.1 Body mass index [BMI] 19.9 or less, adult; R18.8 Other ascites; G89.29 Other chronic pain; F10.20 Alcohol dependence, uncomplicated; M54.9 Dorsalgia, unspecified; E03.9 Hypothyroidism, unspecified; I10 Essential (primary) hypertension; Z85.21 Personal history of malignant neoplasm of larynx; Z85.46 Personal history of malignant neoplasm of prostate; Z88.8 Allergy status to other drugs, medicaments and biological substances; Z91.018 Allergy to other foods; Z79.899 Other long term (current) drug therapy
CPT/HCPCS: 36415; 74150; 74177; 80053; 81003; 83605; 84145; 85025; 87040; 87081; 96365; 96366; 96375; 99285; G0378; J2270; J2405; J2543; J7030; Q9963; Q9967

== ENCOUNTER 2021-07-06 15:41 | Emergency (ER) | payer MEDICARE, MEDICAID ==
[~2021-07-06] VITALS: Ht 172.7 cm; Wt 43.2 kg
[~2021-07-06 15:41] MED LIST changes: +ATRNS BOTHNARES
[2021-07-06 16:27] VITALS: BP 120/60
--- NOTE | 2021-07-06 19:13 | NUR ---
GTUBE IRR WITH 60CC WARM WATER. TUBE WAS PATENT. CLEANED SKINN. APPPLIED TOPICAL AND 4X4S. PT EDUCATION GIVEN ON GTUBE CARE. PT UNDERSTOOD WITH RETURN JADA. INFORMED
== END 2021-07-06 20:15 | disposition home or self-care (01) ==
LOC: ER 15:42
DX: K94.23 Gastrostomy malfunction (principal); I10 Essential (primary) hypertension; E03.9 Hypothyroidism, unspecified; G89.29 Other chronic pain; Z85.9 Personal history of malignant neoplasm, unspecified; Z98.890 Other specified postprocedural states; Z72.89 Other problems related to lifestyle; Z88.8 Allergy status to other drugs, medicaments and biological substances; Z79.899 Other long term (current) drug therapy
CPT/HCPCS: 99281; 99283

== ENCOUNTER 2021-07-07 17:10 | Emergency (ER) | payer MEDICARE, MEDICAID ==
[~2021-07-07] VITALS: Ht 167.6 cm; Wt 43.2 kg
[2021-07-07] MEDS ORDERED: diatrozoate meglu/diatrozoate sod (37% iodine) 120ML oral solution PO ONE (17:50)
[2021-07-07] MEDS ORDERED: morphine 4 MG/ML inj SYRINge IV ONE (18:20)
[2021-07-07 19:37] VITALS: BP 149/95
== END 2021-07-07 19:45 | disposition home or self-care (01) ==
LOC: ER 17:11
DX: K94.23 Gastrostomy malfunction (principal); I10 Essential (primary) hypertension; E03.9 Hypothyroidism, unspecified; G89.29 Other chronic pain; Z85.9 Personal history of malignant neoplasm, unspecified; Z98.890 Other specified postprocedural states; Z72.89 Other problems related to lifestyle; Z88.8 Allergy status to other drugs, medicaments and biological substances; Z79.899 Other long term (current) drug therapy
CPT/HCPCS: 43762; 74018; 96374; 99284; J2270; Q9963